=== PATIENT | female | born 2005 | race Caucasian/White ===

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

== ENCOUNTER → 2024-07-18 | Outpatient (CLI) | payer OTHER ==
[~2024-07-18] MED LIST: Cyclobenzaprine5 MG PO
== END ==
LOC: LAB SHORT 15:14 → LAB 15:14
DX: R82.90 Unspecified abnormal findings in urine (principal)
CPT/HCPCS: 87086